=== PATIENT | male | born 1955 | race Caucasian/White ===

== ENCOUNTER 2016-10-16 08:36 | Outpatient (RCR) | payer BC ==
[~2016-10-16 08:36] MED LIST: CLOP75TA69 PO; DIPH25CA57 PO; LISI10TA2 PO; MULT-974 PO; ROSU40TA PO; [UNRECOGNIZED DRUG - CODE] PO
== END 2016-11-20 12:16 | disposition home or self-care (01) ==
LOC: CR 08:36
PROVIDERS: ATTEND Internal Medicine Cardiovascular Disease
DX: Z48.812 Encounter for surgical aftercare following surgery on the circulatory system (principal); Z95.5 Presence of coronary angioplasty implant and graft
CPT/HCPCS: 93798

== ENCOUNTER 2019-02-02 05:35 | Outpatient (CLI) | payer MEDICARE ==
[~2019-02-02] VITALS: Ht 170.2 cm; Wt 109.8 kg
[2019-02-02] MEDS ORDERED: SPIR25TA5 PO (15:14)
[2019-02-02] MEDS ORDERED: LANS30CA PO (15:14)
[2019-02-02] MEDS ORDERED: DIGO250T15 PO (15:14)
== END 2019-02-02 15:16 | disposition home or self-care (01) ==
LOC: PREOP 05:35
PROVIDERS: ATTEND Surgery
DX: Z01.818 Encounter for other preprocedural examination (principal)

== ENCOUNTER 2019-02-09 09:02 | Day surgery (SDC) | payer MEDICARE ==
[~2019-02-09] VITALS: Ht 170.2 cm; Wt 109.8 kg
[~2019-02-09 09:02] MED LIST changes: +DIGO250T15 PO; +LACTATED RINGERS 1,000 ML IV ONE; +LANS30CA PO; +SPIR25TA5 PO
[2019-02-09 09:15] VITALS: BP 114/52
[2019-02-09] MEDS ORDERED: LACTATED RINGERS 1,000 ML IV PRN (09:15)
[2019-02-09] MEDS ORDERED: proPOfol 200 MG/20 ML (DIPRIVAN) VIAL IV ONE ×2 (09:20→10:02)
[2019-02-09] MEDS ORDERED: MIDAZOLAM 2 MG/2 ML (VERSED) VIAL ONE ×2 (09:20→10:03)
--- NOTE | 2019-02-09 09:26 | Progress Note-Pre Operative ---
Pre-Operative Progress Note H&P Reviewed The H&P was reviewed, patient examined and no changes noted. Date Seen by Provider: Feb 09, 2019 Time Seen by Provider: : Date H&P Reviewed: Feb 09, 2019 Time H&P Reviewed: : Pre-Operative Diagnosis: history of polyps MAC DUVALL DO Feb 09, 2019 09:26
[2019-02-09] MEDS ORDERED: ASPI-999 PO (09:37)
[2019-02-09] MEDS ORDERED: SACU1TAB4 PO (09:37)
[2019-02-09] MEDS ORDERED: CARV12.53 PO (09:37)
[2019-02-09] MEDS ORDERED: ALPR0.25 PO (09:37)
[2019-02-09] MEDS ORDERED: FLUT9.9S NS (09:40)
[2019-02-09] MEDS ORDERED: CETI10CA PO (09:41)
[2019-02-09] MEDS ORDERED: fentaNYL INJECTION 100 MCG/2 ML AMP ONE (10:02)
[2019-02-09] MEDS ORDERED: LIDOCAINE PF 2% 5 ML (XYLOCAINE) VIAL ONE (10:03)
--- NOTE | 2019-02-09 10:43 | Progress Note-Post Operative ---
Post-Operative Progess Note Surgeon (s)/[employer] Display Builder (s) Surgeon MAC DUVALL DO [employer] Display Builder: na Pre-Operative Diagnosis history of polyps Post-Operative Diagnosis colon polyps diverticulosis Procedure & Operative Findings Date of Procedure 02/09/19 Procedure Performed/Findings colonoscopy c hot bx polypectomy x 3 Anesthesia Type per clinical laboratory service teacher Estimated Blood Loss Estimated blood loss (mL): scant Specimens/Packing Specimens Removed colon polyps MAC DUVALL DO Feb 09, 2019 10:43
--- NOTE | 2019-02-09 10:45 | Discharge Inst-Simple/Standard ---
Discharge Inst-Standard Patient Instructions/Follow Up Plan of Care/Instructions/FU: 2 weeks David Activity as Tolerated: Yes Discharge Diet: Regular Diet MAC DUVALL DO Feb 09, 2019 10:45
[2019-02-09 11:00] VITALS: BP 87/49
[2019-02-09 11:25] VITALS: BP 103/55
--- NOTE | 2019-02-09 11:48 | Anesthesia-General Post-Op ---
MAC Patient Condition Mental Status/LOC: Same as Preop Cardiovascular: Satisfactory Nausea/Vomiting: Absent Respiratory: Satisfactory Pain: Controlled Complications: Absent Post Op Complications Complications None Follow Up Care/Instructions Patient Instructions None needed. Anesthesiology Discharge Order Discharge Order Patient is doing well, no complaints, stable vital signs, no apparent adverse anesthesia problems. No complications reported per nursing. HORACE BROWN CRNA Feb 09, 2019 11:48
--- NOTE | 2019-02-09 17:12 | OPERATIVE REPORT ---
DATE OF SERVICE: 02/09/2019 PREOPERATIVE DIAGNOSIS: History of colon polyps. POSTOPERATIVE DIAGNOSIS: Colon polyps and diverticulosis. PROCEDURE: Colonoscopy with hot biopsy polypectomy x3. SURGEON: Mac Hernandez DO ANESTHESIA: Per IMAGING NURSE. ESTIMATED BLOOD LOSS: Scant. COMPLICATIONS: None. INDICATIONS: The patient is a 63-year-old male with history of colon polyps. He understands risks and benefits and wished to proceed with procedure. Consent was signed in the chart. PROCEDURE: The patient was taken to the endoscopy suite, placed in left lateral recumbent position. Timeout was performed. Digital rectal exam was performed. There were no palpable polyps, mass or ulcerations. The scope was inserted in the rectum and advanced all the way to the cecum with minimal difficulty. Prep was adequate. Scope was then slowly retracted back. There were no polyps, masses or ulcerations in the cecum. In the ascending colon, a small polyp was present, which hot biopsy polypectomy was performed. Scope was continued to be slowly retracted back to the remainder of the ascending, transverse colon. No polyps, masses or ulcerations. In the descending colon, another small polyp was present, which hot biopsy polypectomy was performed. Scope was continued slowly retracted back into the sigmoid colon, another small polyp was present, which hot biopsy polypectomy was performed. Scope was continued to be slowly retracted back only noting some diverticulosis present. Once in the rectum, scope was retroflexed noting no other pathology. Scope was returned to its normal position, slowly withdrawn until completely removed. The patient tolerated procedure well without any complications. He is taken to recovery room in stable condition. RECOMMENDATIONS: The patient will need repeat colonoscopy in 5 years. If he has any issues before should be seen at that time. The patient also is recommended a high fiber diet. Job ID: [id number] DocumentID: [id number] Dictated Date: 02/09/2019 10:48:35 Car Electronics Installer Date: 02/09/2019 17:12:21 Dictated By: MAC HERNANDEZ DO
== END 2019-02-09 11:25 | disposition home or self-care (01) ==
LOC: ENDO 09:02
PROVIDERS: ATTEND Surgery
DX: Z12.11 Encounter for screening for malignant neoplasm of colon (principal); K63.5 Polyp of colon; K57.30 Diverticulosis of large intestine without perforation or abscess without bleeding; E78.5 Hyperlipidemia, unspecified; I25.10 Atherosclerotic heart disease of native coronary artery without angina pectoris; Z79.02 Long term (current) use of antithrombotics/antiplatelets; Z79.899 Other long term (current) drug therapy; Z95.5 Presence of coronary angioplasty implant and graft; Z96.643 Presence of artificial hip joint, bilateral; Z87.891 Personal history of nicotine dependence; Z96.653 Presence of artificial knee joint, bilateral